=== PATIENT | female | born 1990 | race Caucasian/White ===

== ENCOUNTER 2017-11-11 18:23 | Emergency (ER) | payer BC ==
[2017-11-11] MEDS ORDERED: MORPHINE SULFATE 2 MG INJ IV ONE (19:07)
[2017-11-11] MEDS ORDERED: Zofran 4 MG/2 ML VIAL IV ONE (19:07)
--- NOTE | 2017-11-11 19:12 | ERPHSYRPT ---
- History of Present Illness Time Seen by Provider: 11/11/17 19:04 Historian: patient Exam Limitations: no limitations Physician History: 27 y/o female with history of gastritis, hiatal hernia and abdominal lipoma comes to the ER with complaints of left sided abdominal pain that started after moving a box at work. Pt describes the pain as sharp, constant, 6/10, worse with movement and not relieved by motrin. Pt also admits to nausea, but no vomiting, diarrhea, constipation, fever, chills, or urinary symptoms. Pt does admit to having mild abdominal pain from gastritis but says that this is different. Timing/Duration: today Activities at Onset: activity Quality: sharpness Abdominal Pain Onset Location: [facility] Pain Radiation: chest Severity of Pain-Max: moderate Severity of Pain-Current: moderate Modifying Factors: Improves With: nothing Associated Symptoms: nausea Previous symptoms: no prior history Allergies/Adverse Reactions: No Known Drug Allergies Allergy (Unverified 05/29/15 06:04) Home Medications: Citalopram Hydrobromide [Celexa] 20 mg PO DAILY 05/29/15 [History] Norgestimate-Ethinyl Estradiol [Iwb-Et-Zllajerg] 1 each PO DAILY 05/29/15 [ History] Omeprazole Magnesium [Prilosec Otc] 20 mg PO BID 05/29/15 [History] Buspirone HCl [Buspar] 1 tab PO BID 11/11/17 [History] Sucralfate 1 gm [Carafate 1 GM] 1 tab PO QID 11/11/17 [History] - Review of Systems Constitutional: No Fever, No Chills Eyes: No Symptoms Ears, Nose, & Throat: No Symptoms Respiratory: No Cough, No Dyspnea Cardiac: No Chest Pain, No Edema, No Syncope Abdominal/Gastrointestinal: Abdominal Pain, Nausea, No Vomiting, No Diarrhea Genitourinary Symptoms: No Dysuria Musculoskeletal: No Back Pain, No Neck Pain Skin: No Rash Neurological: No Dizziness, No Focal Weakness, No Sensory Changes Psychological: No Symptoms Endocrine: No Symptoms All Other Systems: Reviewed and Negative - Past Medical History Pertinent Past Medical History: Yes Neurological History: No Pertinent History ENT History: No Pertinent History Cardiac History: No Pertinent History Respiratory History: No Pertinent History Endocrine Medical History: No Pertinent History Musculoskeletal History: No Pertinent History GI Medical History: GERD History: No Pertinent History Psycho-Social History: Depression Female Reproductive Disorders: No Pertinent History - Past Surgical History Past Surgical History: Yes Neuro Surgical History: No Pertinent History Cardiac: No Pertinent History Respiratory: No Pertinent History Gastrointestinal: No Pertinent History Genitourinary: No Pertinent History Musculoskeletal: No Pertinent History Female Surgical History: No Pertinent History Other Surgical History: sinus surgery at age 7-"cleaned it out", abd lipoma removal, EGD - Social History Smoking Status: Never smoker Exposure to second hand smoke: No Drug Use: none - Nursing Vital Signs Nursing Vital Signs: Initial Vital Signs Temperature 97.6 F 11/11/17 19:11 Pulse Rate 90 11/11/17 19:11 Respiratory Rate 20 11/11/17 19:11 Blood Pressure 133/71 11/11/17 19:11 O2 Sat by Pulse Oximetry 99 11/11/17 19:11 Pain Scale Pain Intensity 3 - Physical Exam General Appearance: mild distress, alert Eye Exam: PERRL/EOMI, eyes nml inspection Ears, Nose, Throat Exam: normal ENT inspection, pharynx normal, moist mucous membranes Neck Exam: normal inspection, non-tender, supple, full range of motion Respiratory Exam: normal breath sounds, lungs clear, No respiratory distress Cardiovascular Exam: regular rate/rhythm, normal heart sounds Gastrointestinal/Abdomen Exam: soft, normal bowel sounds, tenderness, No distention, No mass, No guarding, No rebound Back Exam: normal inspection, normal range of motion, No CVA tenderness, No vertebral tenderness Extremity Exam: normal inspection, normal range of motion, pelvis stable Neurologic Exam: alert, oriented x 3, cooperative, normal mood/affect, nml cerebellar function, sensation nml, No motor deficits Skin Exam: normal color, warm, dry - Course Nursing assessment & vital signs reviewed: Yes Ordered Tests: Active Orders 24 hr Category Date Time Status IV Insertion STAT Care 11/11/17 19:07 Active NPO (ED) STAT Care 11/11/17 19:07 Active ABDOMEN AND PELVIS W CONTRAST [CT] Stat Exams 11/11/17 19:07 Taken AMYLASE Stat Lab 11/11/17 19:38 Completed CBC W DIFF Stat Lab 11/11/17 19:38 Completed CMP Stat Lab 11/11/17 19:38 Completed CULTURE,URINE Stat Lab 11/11/17 19:23 Received HCG QUALITATIVE,SERUM Stat Lab 11/11/17 19:38 Completed LIPASE Stat Lab 11/11/17 19:38 Completed Lactic Acid Stat Lab 11/11/17 20:35 Completed UA W/ MICROSCOPIC Stat Lab 11/11/17 19:23 Completed Medication Summary Discontinued Medications Generic Name Dose Route Start Last Admin Trade Name Freq PRN Reason Stop Dose Admin Ketorolac Tromethamine 30 mg 11/11/17 20:56 11/11/17 21:22 Toradol 30 Mg Injection IV 11/11/17 20:57 30 mg STAT ONE Administration Ketorolac Tromethamine Confirm 11/11/17 21:19 Toradol 30 Mg Injection Administered 11/11/17 21:20 Dose 30 mg .ROUTE .STK-MED ONE Morphine Sulfate 2 mg 11/11/17 19:07 11/11/17 19:37 Morphine Sulfate 2 Mg Inj IV 11/11/17 19:08 2 mg STAT ONE Administration Morphine Sulfate Confirm 11/11/17 19:26 Morphine Sulfate 2 Mg Inj Administered 11/11/17 19:27 Dose 2 mg .ROUTE .STK-MED ONE Ondansetron HCl 4 mg 11/11/17 19:07 11/11/17 19:37 Zofran 4 Mg/2 Ml Vial IV 11/11/17 19:08 4 mg STAT ONE Administration Ondansetron HCl Confirm 11/11/17 19:26 Zofran 4 Mg/2 Ml Vial Administered 11/11/17 19:27 Dose 4 mg .ROUTE .STK-MED ONE Lab/Rad Data: Laboratory Result Diagrams 11/11/17 19:38 11/11/17 19:38 Laboratory Results 11/11/17 11/11/17 11/11/17 Range/Units 20:35 19:38 19:38 WBC (4.0-10.5) K/mm3 RBC (4.1-5.4) M/mm3 Hgb (12.0-16.0) gm/dl Hct (35-47) % MCV (78-100) fl MCH (26-32) pg MCHC (32-36) g/dl RDW (11.5-14.0) % Plt Count (150-450) K/mm3 MPV (6-9.5) fl Gran % (36.0-66.0) % Lymphocytes % (24.0-44.0) % Monocytes % (0.0-12.0) % Eosinophils % (0.00-5.0) % Basophils % (0.0-0.4) % Basophils # (0-0.4) Sodium 143 (136-145) mEq/L Potassium 4.0 (3.5-5.1) mEq/L Chloride 107 (98-107) mEq/L Carbon Dioxide 23.3 (21-32) mEq/L Anion Gap 16.5 H (5-15) MEQ/L BUN 8 L (9-20) mg/dL Creatinine 0.69 (0.55-1.30) mg/dl Estimated GFR > 60 ML/MIN Glucose 87 (70-110) MG/DL Lactic Acid 1.2 (0.4-2.0) Calcium 8.7 (8.5-10.1) mg/dL Total Bilirubin 0.20 (0.2-1.0) mg/dL AST 14 L (15-37) U/L ALT 18 (12-78) U/L Alkaline Phosphatase 58 (46-116) U/L Serum Total Protein 7.5 (6.4-8.2) gm/dL Albumin 3.6 (3.4-5.0) g/dL Amylase 36 (25-115) U/L Lipase 106 (73-393) U/L Serum , Qual NEGATIVE (Negative) Ur Collection Type Urine Color (YELLOW) Urine Appearance (CLEAR) Urine pH (5-6) Ur Specific [place] (1.005-1.025) Urine Protein (Negative) Urine Ketones (NEGATIVE) Urine Blood (0-5) Jonathan/ul Urine Nitrite (NEGATIVE) Urine Bilirubin (NEGATIVE) Urine Urobilinogen (0-1) mg/dL Ur Leukocyte Esterase (NEGATIVE) Urine Microscopic RBC (0-2) /HPF Ur Epithelial Cells (FEW) /HPF Urine Bacteria (NEGATIVE) /HPF Urine Mucus (NEGATIVE) /HPF Urine Culture Reflexed (NO) Urine Glucose (NEGATIVE) mg/dL Specimen Received 11/11/17 11/11/17 Range/Units 19:38 19:23 WBC 12.1 H (4.0-10.5) K/mm3 RBC 3.93 L (4.1-5.4) M/mm3 Hgb 10.7 L (12.0-16.0) gm/dl Hct 33.1 L (35-47) % MCV 84.2 (78-100) fl MCH 27.2 (26-32) pg MCHC 32.3 (32-36) g/dl RDW 13.8 (11.5-14.0) % Plt Count 311 (150-450) K/mm3 MPV 10.5 H (6-9.5) fl Gran % 55.1 (36.0-66.0) % Lymphocytes % 32.4 (24.0-44.0) % Monocytes % 6.1 (0.0-12.0) % Eosinophils % 5.9 H (0.00-5.0) % Basophils % 0.5 (0.0-0.4) % Basophils # 0.06 (0-0.4) Sodium (136-145) mEq/L Potassium (3.5-5.1) mEq/L Chloride (98-107) mEq/L Carbon Dioxide (21-32) mEq/L Anion Gap (5-15) MEQ/L BUN (9-20) mg/dL Creatinine (0.55-1.30) mg/dl Estimated GFR ML/MIN Glucose (70-110) MG/DL Lactic Acid (0.4-2.0) Calcium (8.5-10.1) mg/dL Total Bilirubin (0.2-1.0) mg/dL AST (15-37) U/L ALT (12-78) U/L Alkaline Phosphatase (46-116) U/L Serum Total Protein (6.4-8.2) gm/dL Albumin (3.4-5.0) g/dL Amylase (25-115) U/L Lipase (73-393) U/L Serum , Qual (Negative) Ur Collection Type CCMS Urine Color YELLOW (YELLOW) Urine Appearance SLIGHTLY CLOUDY (CLEAR) Urine pH 5.0 (5-6) Ur Specific [place] 1.025 (1.005-1.025) Urine Protein TRACE (Negative) Urine Ketones SMALL (NEGATIVE) Urine Blood 50 (0-5) Jonathan/ul Urine Nitrite NEGATIVE (NEGATIVE) Urine Bilirubin NEGATIVE (NEGATIVE) Urine Urobilinogen NORMAL (0-1) mg/dL Ur Leukocyte Esterase NEGATIVE (NEGATIVE) Urine Microscopic RBC 2-5 (0-2) /HPF Ur Epithelial Cells MANY (FEW) /HPF Urine Bacteria RARE (NEGATIVE) /HPF Urine Mucus MANY (NEGATIVE) /HPF Urine Culture Reflexed YES (NO) Urine Glucose NEGATIVE (NEGATIVE) mg/dL Specimen Received T@1930 - Progress Progress: improved Progress Note: 11/11/17 21:[address] scan abd/pelvis does not any acute findings. The patient feels better after receiving morphine, toradol and zofran. The labs show a slightly elevated white count of 12,000 and the rest of the labs are unremarkable. Pt will be d/c home on toradol and zofran. - Departure Time of Disposition: 21:47 Departure Disposition: Home Clinical Impression: Abdominal wall strain Qualifiers: Encounter type: initial encounter Qualified Code(s): S39.011A - Strain of muscle, fascia and tendon of abdomen, initial encounter Condition: Stable Critical Care Time: No Referrals: CR KATE [Primary Care Provider] - Instructions: Acute Abdomen (Belly Pain), Adult (DC) Additional Instructions: Follow up with your primary care doctor in the next few days if you should continue to have abdominal pain. Forms: Work/School Release Form Prescriptions: Ketorolac Tromethamine [Toradol] 10 mg PO QID PRN #20 tablet PRN Reason: Pain Promethazine HCl 25 mg [Phenergan 25 mg] 25 mg PO QID PRN #10 tablet PRN Reason: Nausea/Vomiting
[2017-11-11] MEDS ORDERED: Zofran 4 MG/2 ML VIAL ONE (19:26)
[2017-11-11] MEDS ORDERED: MORPHINE SULFATE 2 MG INJ ONE (19:26)
[2017-11-11 19:42] LABS: BASOPHIL % 0.5 % (0.0-0.4); Basophil (Absolute #) 0.06 (0-0.4); Eosinophil % 5.9 % (0.00-5.0); Eosinophil (Absolute #) 0.71 (0-0.5); Granulocyte Absolute (ANC) 6.63 (1.4-6.9); Granulocytes % 55.1 % (36.0-66.0); Hematocrit 33.1 % (35-47); Hemoglobin 10.7 gm/dl (12.0-16.0); Lymphocyte (Absolute #) 3.91 (1.0-4.6); Lymphocytes % 32.4 % (24.0-44.0); Mean Cell Volume 84.2 fl (78-100); Mean Corpuscular Hemoglobin 27.2 pg (26-32); Mean Corpuscular Hgb Concent. 32.3 g/dl (32-36); Mean Platelet Volume 10.5 fl (6-9.5); Monocyte (Absolute #) 0.74 (0.0-1.3); Monocytes % 6.1 % (0.0-12.0); Platelet Count 311 K/mm3 (150-450); Red Blood Count 3.93 M/mm3 (4.1-5.4); Red Cell Distribution Width 13.8 % (11.5-14.0); White Blood Count 12.1 K/mm3 (4.0-10.5)
[2017-11-11 19:46] LABS: Appearance SLIGHTLY CLOUDY (CLEAR); Bilirubin NEGATIVE (NEGATIVE); Glucose NEGATIVE (NEGATIVE); Ketones SMALL (NEGATIVE); Leukocyte Esterase NEGATIVE (NEGATIVE); Nitrite NEGATIVE (NEGATIVE); Protein,Urine Dip TRACE (Negative); Specific Gravity 1.025 (1.005-1.025); Urobilinogen NORMAL mg/dL (0-1)
[2017-11-11 19:47] LABS: Blood 50 Ery/ul (0-5)
[2017-11-11 19:52] LABS: Bacteria RARE /HPF (NEGATIVE); Epithelial Cells MANY /HPF (FEW); Mucus MANY /HPF (NEGATIVE)
[2017-11-11 20:05] LABS: ALBUMIN 3.6 g/dL (3.4-5.0); ALKALINE PHOSPHATASE 58 U/L (46-116); AMYLASE 36 U/L (25-115); ANION GAP 16.5 MEQ/L (5-15); BLOOD UREA NITROGEN 8 mg/dL (9-20); CHLORIDE 107 mEq/L (98-107); Calcium 8.7 mg/dL (8.5-10.1); Carbon Dioxide 23.3 mEq/L (21-32); Creatinine 1 0.69 mg/dl (0.55-1.30); Glucose 87 MG/DL (70-110); LIPASE 106 U/L (73-393); SGOT/AST 14 U/L (15-37); SGPT/ALT 18 U/L (12-78); SODIUM 143 mEq/L (136-145); Total Protein 7.5 gm/dL (6.4-8.2)
[2017-11-11] MEDS ORDERED: TORAdol 30 mg Injection IV ONE (20:56)
[2017-11-11] MEDS ORDERED: TORAdol 30 mg Injection ONE (21:19)
[2017-11-11 21:27] VITALS: BP 136/81
[2017-11-11 21:54] VITALS: PULSE 82; O2SAT 97
--- NOTE | 2017-11-12 08:51 | XRAY ---
Indication: Left upper quadrant pain and vomiting. Multiple contiguous axial images obtained through the abdomen and pelvis using 80cc Isovue 370 contrast only as ordered. Comparison: March 04, 2017. Lung bases remaining clear. Heart is not enlarged. Stable small hiatal hernia. Noncontrasted stomach and bowel loops appear nonobstructed. Appendix not seen. No free fluid/air. Previous bilateral nephrocalcinosis obscured on this contrasted exam. Remaining liver, gallbladder, pancreas, spleen, adrenal glands, kidneys, ureters, bladder, uterus, ovaries, and aorta appear unremarkable. No pathologic retroperitoneal lymphadenopathy. Osseous structures intact. No ventral or inguinal hernias. Impression: 1. Stable small hiatal hernia. 2. No new or acute intra-abdominal/pelvic abnormalities. Comment: Preliminary interpretation was made by [facility]. No critical discrepancy. CT DI 28.13
== END 2017-11-11 22:06 | disposition home or self-care (01) ==
LOC: ED 18:23
DX: S39.011A Strain of muscle, fascia and tendon of abdomen, initial encounter (principal); X50.0XXA Overexertion from strenuous movement or load, initial encounter; Y93.89 Activity, other specified; Y92.218 Other school as the place of occurrence of the external cause; K21.9 Gastro-esophageal reflux disease without esophagitis
CPT/HCPCS: 36000; 36415; 74177; 80053; 81000; 82150; 83605; 83690; 84703; 85025; 87086; 96374; 96375; 99284; J1885; J2270; J2405

== ENCOUNTER 2018-03-12 19:57 | Emergency (ER) | payer BC ==
[2018-03-12 20:21] VITALS: BP 169/69; O2SAT 96
[2018-03-12] MEDS ORDERED: Xopenex 1.25 MG/0.5 ML UD NEBULE IH ONE ×2 (20:41→20:45)
[2018-03-12] MEDS ORDERED: Sodium Chloride 3 ML UD NEBULES IH ONE (20:45)
--- NOTE | 2018-03-12 20:49 | ERPHSYRPT ---
- History of Present Illness Time Seen by Provider: 03/12/18 20:10 Source: patient Patient Subjective Stated Complaint: pt is alert and oriented. pt is ambulatory with a steady gait. pt comes in today with c/o of being short of breath. she states that she has had "a hard time getting a full breath" rather than a "hard time catching her breath". pt lungs sound clear a-p bilat throughout. O2 sat at 96% on RA. no audible wheezes. pt states that she has be feeling lightheaded and dizzy all day but the SOB did not start until right before arrival. she states she was driving when her SOB started. Triage Nursing Assessment: see above Physician History: PATIENT WITH A HISTORY OF DEPRESSION COMPLAINS OF SHORTNESS OF BREATH WITH DIFFICULTY CATCHING HER BREATH. HAS ASSOCIATED CHEST TIGHTNESS, RIGHT SIDED CHEST PAIN UPON INSPIRATION. DENIES COUGH, FEVER, DIAPHORESIS OR PALPITATIONS. PATIENT ALSO COMPLAINS OF DIZZINESS WORSE UPON MOTION OF HER HEAD. Timing/Duration: today Activities at Onset: activity Severity of Dyspnea-Max: mild Severity of Dyspnea-Current: mild Possible Cause: no prior episodes Modifying Factors: Improves With: activity Associated Symptoms: dizziness International travel in last 2 weeks: No Allergies/Adverse Reactions: No Known Drug Allergies Allergy (Unverified 05/29/15 06:04) Home Medications: Norgestimate-Ethinyl Estradiol [Qtw-Qp-Mpbnfrwc] 1 each PO DAILY 05/29/15 [ History] Omeprazole Magnesium [Prilosec Otc] 20 mg PO BID 05/29/15 [History] Buspirone HCl [Buspar] 1 tab PO BID 11/11/17 [History] Sucralfate 1 gm [Carafate 1 GM] 1 tab PO QID 11/11/17 [History] Bupropion HCl [Bupropion HCl ER] 150 mg PO DAILY 03/12/18 [History] Hx Tetanus, Diphtheria Vaccination/Date Given: Yes Hx Influenza Vaccination/Date Given: No Hx Pneumococcal Vaccination/Date Given: No Immunizations Up to Date: Yes - Review of Systems Constitutional: No Fever, No Chills Eyes: No Symptoms Ears, Nose, & Throat: No Symptoms Respiratory: Dyspnea, Dyspnea on Exertion (ROMANO), No Cough Cardiac: No Symptoms, No Chest Pain, No Edema, No Syncope Abdominal/Gastrointestinal: No Symptoms, No Abdominal Pain, No Nausea, No Vomiting, No Diarrhea Genitourinary Symptoms: No Dysuria Musculoskeletal: No Symptoms, No Back Pain, No Neck Pain Skin: No Rash Neurological: No Dizziness, No Focal Weakness, No Sensory Changes Psychological: No Symptoms Endocrine: No Symptoms All Other Systems: Reviewed and Negative - Past Medical History Pertinent Past Medical History: Yes Neurological History: No Pertinent History ENT History: No Pertinent History Cardiac History: No Pertinent History Respiratory History: No Pertinent History Endocrine Medical History: No Pertinent History Musculoskeletal History: No Pertinent History GI Medical History: GERD History: No Pertinent History Psycho-Social History: Depression Female Reproductive Disorders: No Pertinent History Other Medical History: H. Pylori, and E. Coli - Past Surgical History Past Surgical History: Yes Neuro Surgical History: No Pertinent History Cardiac: No Pertinent History Respiratory: No Pertinent History Gastrointestinal: No Pertinent History Genitourinary: No Pertinent History Musculoskeletal: No Pertinent History Female Surgical History: No Pertinent History Other Surgical History: sinus surgery 2002-"cleaned it out", abd lipoma removal May 2017, EGD - Social History Smoking Status: Never smoker Exposure to second hand smoke: No Drug Use: none - Female History Hx Now: No (unknown) - Nursing Vital Signs Nursing Vital Signs: Initial Vital Signs Temperature 98.6 F 03/12/18 19:57 Pulse Rate 110 H 03/12/18 19:57 Respiratory Rate 16 03/12/18 19:57 Blood Pressure 169/69 03/12/18 19:57 O2 Sat by Pulse Oximetry 95 03/12/18 19:57 Pain Scale Pain Intensity 0 - Physical Exam General Appearance: no apparent distress, alert Eye Exam: PERRL/EOMI Neck Exam: normal inspection, supple Respiratory Exam: diminished breath sounds (SLIGHT AT BASES NO WHEEZES OR RHONCHI, TENDERNESS RIGHT LATERAL CHEST WALL) Cardiovascular/Chest Exam: normal heart sounds, regular rate/rhythm Abdominal/Gastrointestinal Exam: soft, No tenderness, No distention, No mass Extremity Exam: non-tender, normal range of motion, normal inspection, no calf tenderness, no pedal edema Peripheral Pulses Exam: carotid (R): 2+, carotid (L): 2+, femoral (R): 2+, femoral (L): 2+, dorsalis-pedis (R): 2+, dorsalis-pedis (L): 2+ Neurologic Exam: alert, oriented x 3, cooperative, foot roentgenologist II-XII nml as tested, sensation nml, No motor deficits Skin Exam: normal color, warm, No dry SpO2 Interpretation: normal SpO2: 96 Oxygen Delivery: Room Air - Course EKG Interpreted by Me: RATE, Sinus Rhythm, NORMAL AXIS - Radiology Exams Chest X-ray Interpretation: Interpreted by me, Negative, No Infiltrates Ordered Tests: Active Orders 24 hr Category Date Time Status EKG-ER Only STAT Care 03/12/18 20:41 Active CHEST 2 VIEWS (PA AND LAT) Stat Exams 03/12/18 20:45 Taken BMP Stat Lab 03/12/18 21:01 Completed CBC W DIFF Stat Lab 03/12/18 21:01 Completed D-DIMER QUANTITATION Stat Lab 03/12/18 21:01 Completed HCG,QUALITATIVE URINE Stat Lab 03/12/18 22:00 Completed MAGNESIUM Stat Lab 03/12/18 21:01 Completed TROPONIN Q3H Lab 03/12/18 21:01 Completed TROPONIN Q3H Lab 03/12/18 23:45 Ordered TROPONIN Q3H Lab 03/13/18 02:45 Ordered TROPONIN Q3H Lab 03/13/18 05:45 Ordered TROPONIN Q3H Lab 03/13/18 08:45 Ordered Peak Expiratory Flow Rate ONCE RT 03/12/18 20:44 Completed Respiratory Nebulizer STAT RT 03/12/18 20:52 Completed Medication Summary Discontinued Medications Generic Name Dose Route Start Last Admin Trade Name Freq PRN Reason Stop Dose Admin Ketorolac Tromethamine 10 mg 03/12/18 23:23 Toradol 10 Mg Tablet PO 03/12/18 23:24 STAT ONE Levalbuterol HCl 1.25 mg 03/12/18 20:41 03/12/18 20:51 Xopenex 1.25 Mg/0.5 Ml Ud Nebule IH 03/12/18 20:42 1.25 mg STAT ONE Administration Levalbuterol HCl Confirm 03/12/18 20:45 Xopenex 1.25 Mg/0.5 Ml Ud Nebule Administered 03/12/18 20:46 Dose 1.25 mg IH .STK-MED ONE Meclizine HCl 25 mg 03/12/18 22:43 03/12/18 22:48 Antivert 25 Mg PO 03/12/18 22:44 25 mg STAT ONE Administration Meclizine HCl Confirm 03/12/18 22:47 Antivert 25 Mg Administered 03/12/18 22:48 Dose 25 mg .ROUTE .STK-MED ONE Sodium Chloride Confirm 03/12/18 20:45 Sodium Chloride 3 Ml Ud Nebules Administered 03/12/18 20:46 Dose 3 ml IH .STK-MED ONE Lab/Rad Data: Laboratory Result Diagrams 03/12/18 21:01 03/12/18 21:01 Laboratory Results 03/12/18 03/12/18 03/12/18 Range/Units 22:00 21:01 21:01 WBC (4.0-10.5) K/mm3 RBC (4.1-5.4) M/mm3 Hgb (12.0-16.0) gm/dl Hct (35-47) % MCV (78-100) fl MCH (26-32) pg MCHC (32-36) g/dl RDW (11.5-14.0) % Plt Count (150-450) K/mm3 MPV (6-9.5) fl Gran % (36.0-66.0) % Eos # (Auto) (0-0.5) Absolute Lymphs (auto) (1.0-4.6) Absolute Monos (auto) (0.0-1.3) Lymphocytes % (24.0-44.0) % Monocytes % (0.0-12.0) % Eosinophils % (0.00-5.0) % Basophils % (0.0-0.4) % Absolute Granulocytes (1.4-6.9) Basophils # (0-0.4) D-Dimer < 215 L (215-500) ng/mL Sodium (137-145) mmol/L Potassium (3.5-5.1) mmol/L Chloride (98-107) mmol/L Carbon Dioxide (22-30) mmol/L Anion Gap (5-15) MEQ/L BUN (7-17) mg/dL Creatinine (0.52-1.04) mg/dL Estimated GFR ML/MIN Glucose (74-106) mg/dL Calcium (8.4-10.2) mg/dL Magnesium (1.6-2.3) mg/dL Troponin I < 0.012 (0.000-0.034) ng/mL Urine HCG, Qual NEGATIVE (Negative) 03/12/18 03/12/18 Range/Units 21:01 21:01 WBC 9.7 (4.0-10.5) K/mm3 RBC 4.26 (4.1-5.4) M/mm3 Hgb 11.5 L (12.0-16.0) gm/dl Hct 35.4 (35-47) % MCV 83.1 (78-100) fl MCH 26.9 (26-32) pg MCHC 32.5 (32-36) g/dl RDW 14.5 H (11.5-14.0) % Plt Count 367 (150-450) K/mm3 MPV 9.7 H (6-9.5) fl Gran % 56.6 (36.0-66.0) % Eos # (Auto) 0.44 (0-0.5) Absolute Lymphs (auto) 3.04 (1.0-4.6) Absolute Monos (auto) 0.63 (0.0-1.3) Lymphocytes % 31.5 (24.0-44.0) % Monocytes % 6.5 (0.0-12.0) % Eosinophils % 4.6 (0.00-5.0) % Basophils % 0.8 (0.0-0.4) % Absolute Granulocytes 5.46 (1.4-6.9) Basophils # 0.08 (0-0.4) D-Dimer (215-500) ng/mL Sodium 144 (137-145) mmol/L Potassium 4.2 (3.5-5.1) mmol/L Chloride 106 (98-107) mmol/L Carbon Dioxide 27 (22-30) mmol/L Anion Gap 15.1 H (5-15) MEQ/L BUN 11 (7-17) mg/dL Creatinine 0.65 (0.52-1.04) mg/dL Estimated GFR > 60.0 ML/MIN Glucose 110 H (74-106) mg/dL Calcium 9.8 (8.4-10.2) mg/dL Magnesium 2.0 (1.6-2.3) mg/dL Troponin I (0.000-0.034) ng/mL Urine HCG, Qual (Negative) - Progress Progress: improved Progress Note: 03/12/18 21:22 PEAK FLOW 302, FOLLOWED BY XOPENEX 1.25MG AEROSOL TX, ADMINISTERED ANTIVERT 25MG AND TORADOL 10MG ORALLY 03/12/18 23:20 Counseled pt/family regarding: lab results, diagnosis, need for follow-up, rad results - Departure Time of Disposition: 23:31 Departure Disposition: Home Clinical Impression: ACUTE CHEST WALL PAIN, ACUTE LABYRINTHITIS Condition: Stable Critical Care Time: No Referrals: CR KATE [Primary Care Provider] - Additional Instructions: BEGIN TORADOL 10 MG EVERY 6 HOURS NEEDED FOR PAIN. ANTIVERT 25MG EVERY 8 HOURS FOR DIZZINESS NEEDED. CONSULT YOUR PRIMARY CARE PROVIDER FOR FOLLOW Prescriptions: Ketorolac Tromethamine [Toradol] 10 mg PO Q6HPRN PRN #20 tablet PRN Reason: Pain Meclizine HCl 25 mg [Antivert 25 mg] 25 mg PO Q8HPRN PRN #20 tablet PRN Reason: Dizziness
[2018-03-12 20:57] VITALS: PULSE 97
[2018-03-12 21:04] LABS: BASOPHIL % 0.8 % (0.0-0.4); Basophil (Absolute #) 0.08 (0-0.4); Eosinophil % 4.6 % (0.00-5.0); Eosinophil (Absolute #) 0.44 (0-0.5); Granulocyte Absolute (ANC) 5.46 (1.4-6.9); Granulocytes % 56.6 % (36.0-66.0); Hematocrit 35.4 % (35-47); Hemoglobin 11.5 gm/dl (12.0-16.0); Lymphocyte (Absolute #) 3.04 (1.0-4.6); Lymphocytes % 31.5 % (24.0-44.0); Mean Cell Volume 83.1 fl (78-100); Mean Corpuscular Hgb Concent. 32.5 g/dl (32-36); Mean Platelet Volume 9.7 fl (6-9.5); Monocyte (Absolute #) 0.63 (0.0-1.3); Monocytes % 6.5 % (0.0-12.0); Platelet Count 367 K/mm3 (150-450); Red Blood Count 4.26 M/mm3 (4.1-5.4); Red Cell Distribution Width 14.5 % (11.5-14.0); White Blood Count 9.7 K/mm3 (4.0-10.5)
[2018-03-12 21:26] LABS: Mean Corpuscular Hemoglobin 26.9 pg (26-32)
[2018-03-12 21:45] LABS: ANION GAP 15.1 MEQ/L (5-15); BLOOD UREA NITROGEN 11 mg/dL (7-17); CHLORIDE 106 mmol/L (98-107); Calcium 9.8 mg/dL (8.4-10.2); Carbon Dioxide 27 mmol/L (22-30); Creatinine 1 0.65 mg/dL (0.52-1.04); Glucose 110 mg/dL (74-106); Potassium 4.2 mmol/L (3.5-5.1); SODIUM 144 mmol/L (137-145)
[2018-03-12] MEDS ORDERED: ANTIVERT 25 MG PO ONE (22:43)
[2018-03-12] MEDS ORDERED: ANTIVERT 25 MG ONE (22:47)
[2018-03-12] MEDS ORDERED: TORAdol 10 MG TABLET PO ONE (23:23)
--- NOTE | 2018-03-13 09:20 | XRAY ---
Indication: Dyspnea. Comparison: None PA/lateral chest demonstrates normal heart, lungs, and bony thorax.
== END 2018-03-12 23:48 | disposition home or self-care (01) ==
LOC: ED 19:57
DX: R07.89 Other chest pain (principal); H83.09 Labyrinthitis, unspecified ear; R06.02 Shortness of breath; Z79.899 Other long term (current) drug therapy
CPT/HCPCS: 36415; 71046; 80048; 83735; 84484; 84703; 85025; 85379; 93005; 94150; 94640; 99284; A9270-GY

== ENCOUNTER 2024-04-01 16:01 | Emergency (ER) | payer BC ==
[2024-04-01 17:13] VITALS: TEMP 97.7
[2024-04-01] MEDS ORDERED: TORAdol 30 mg Injection ONE (18:03)
[2024-04-01] MEDS: TORAdol 30 mg Injection IM ONE (18:06)
[2024-04-01 18:07] VITALS: BP 92/74; PULSE 93; RESP 18; O2SAT 96
--- NOTE | 2024-04-01 18:14 | ERPHSYRPT ---
- History of Present Illness Time Seen by Provider: 04/01/24 16:57 Source: patient Exam Limitations: no limitations Patient Subjective Stated Complaint: Patient fell at a gas station over a gas pump and injured her left foot. Incident occurred around 1300 today. Denies any other injuries. Triage Nursing Assessment: Patient is alert and oriented. Tenderness and swelling noted to top of left foot. Small abrasion noted on top of 2nd and 3rd toes; no active bleeding. Some bruising present to great toe. Physician History: 33 years old female presented in the ER with complaint of left midfoot pain after she fell over a gas pump around 1 PM. Patient reports moderate intensity sharp pain with ambulation and better with resting. No numbness or tingling in the toes. No ankle pain. No obvious swelling. No injury anywhere else. Patient has tenderness midfoot with no crepitus. Distal neurovascular intact. Bimalleolar negative tenderness. X-rays foot are negative for acute fracture dislocation. Reviewed by me, official report is pending. I believe patient has sprain, placed in Tyler wrap, flat postop shoe, NSAIDs Toradol here and to go home. Recommended ice, avoiding exertional activity and outpatient follow-up with primary care/podiatry. Allergies/Adverse Reactions: No Known Drug Allergies Allergy (Verified 04/01/24 16:59) Home Medications: Omeprazole Magnesium [Prilosec Otc] 20 mg PO BID 05/29/15 [History] Aripiprazole [Abilify] 2 mg PO DAILY 02/05/24 [History] Cholecalciferol (Vitd3)/Vit K2 [D3 + K2 Dots 1,000 Units Tab] 1 each PO DAILY 02/05/24 [History] Desvenlafaxine [Desvenlafaxine ER] 100 mg PO DAILY 02/05/24 [History] Mecobalamin [B12 Active] 1,000 mcg PO DAILY 02/05/24 [History] Non-Formulary Drug [Non-Formulary Item] 65 mg PO DAILY 02/05/24 [History] acetaZOLAMIDE [Acetazolamide 250 mg Tablet] 250 mg PO DAILY 02/05/24 [History] diphenhydrAMINE HCL [Benadryl] 25 mg PO BID PRN 02/05/24 [History] Hx Tetanus, Diphtheria Vaccination/Date Given: Yes Hx Influenza Vaccination/Date Given: Yes Hx Pneumococcal Vaccination/Date Given: No Immunizations Up to Date: Yes Travel Risk - International Travel Have you traveled outside of the country in past 3 weeks: No - Emerging Infectious Disease Are you exhibiting symptoms associated with any current EIDs: No Symptoms: Shortness of Breath - Review of Systems Constitutional: No Symptoms Ears, Nose, & Throat: No Symptoms Respiratory: No Symptoms Cardiac: No Symptoms Abdominal/Gastrointestinal: No Symptoms Genitourinary Symptoms: No Symptoms Musculoskeletal: Injury Skin: No Symptoms Neurological: No Symptoms Endocrine: No Symptoms Hematologic/Lymphatic: No Symptoms - Past Medical History Pertinent Past Medical History: Yes Neurological History: No Pertinent History ENT History: No Pertinent History Cardiac History: No Pertinent History Respiratory History: No Pertinent History Endocrine Medical History: No Pertinent History Musculoskeletal History: No Pertinent History GI Medical History: GERD History: No Pertinent History Psycho-Social History: Anxiety, Depression Female Reproductive Disorders: No Pertinent History Other Medical History: H. Pylori, and E. Coli - Past Surgical History Past Surgical History: Yes Neuro Surgical History: No Pertinent History Cardiac: No Pertinent History Respiratory: No Pertinent History Gastrointestinal: No Pertinent History Genitourinary: No Pertinent History Musculoskeletal: No Pertinent History Female Surgical History: No Pertinent History Other Surgical History: sinus surgery 2002-"cleaned it out", abd lipoma removal May 2017, EGD - Female History Hx Last Menstrual Period: NOW Hx Now: No - Social History Smoking Status: Never smoker Exposure to second hand smoke: No Drug Use: none - Social Determinants of Health Will the patient participate in the screening: Yes Do you worry about a steady place to live?: No Do you have any problems with any of the following?: No known problems In the past 12 months,have you had to go without utilities?: No Transportation Issues: No Has anyone in your support network made you feel unsafe?: No Have you or anyone in your house had to go without enough: No - Nursing Vital Signs Nursing Vital Signs: Initial Vital Signs Temperature 97.7 F 04/01/24 16:50 Pulse Rate 81 04/01/24 16:50 Respiratory Rate 18 04/01/24 16:50 Blood Pressure 136/100 04/01/24 16:50 O2 Sat by Pulse Oximetry 97 04/01/24 16:50 Pain Scale Pain Intensity 8 - Physical Exam General Appearance: no apparent distress, alert Neck Exam: normal inspection, full range of motion Cardiovascular/Respiratory Exam: normal breath sounds, regular rate/rhythm Ankle Exam: bilateral ankle: non-tender, normal inspection, normal range of motion Foot Exam: right foot: non-tender, normal inspection, normal range of motion, no evidence of injury, left foot: bone tenderness (Midfoot), pain, soft tissue tenderness Neuro/Tendon Exam: normal sensation, normal motor functions, normal tendon functions Mental Status Exam: alert, oriented x 3, cooperative Skin Exam: normal color SpO2 Interpretation: normal SpO2: 96 O2 Delivery: Room Air Ordered Tests: Active Orders 24 hr Category Date Time Status FOOT (MINIMUM 3 VIEWS) Stat Exams 04/01/24 16:58 Ordered Medication Summary Discontinued Medications Generic Name Dose Route Start Last Admin Trade Name Jovan PRN Reason Stop Dose Admin Ketorolac Tromethamine 30 mg 04/01/24 18:01 04/01/24 18:06 Ketorolac Tromethamine 30 Mg/Ml Inj IM 04/01/24 18:02 30 mg STAT ONE Administration Ketorolac Tromethamine Confirm 04/01/24 18:03 Ketorolac Tromethamine 30 Mg/Ml Inj Administered 04/01/24 18:04 Dose 30 mg .ROUTE .STK-MED ONE - Progress Progress: improved, pain not gone completely Progress Note: 04/01/24 18:12 33 years old female presented in the ER with complaint of left midfoot pain after she fell over a gas pump around 1 PM. Patient reports moderate intensity sharp pain with ambulation and better with resting. No numbness or tingling in the toes. No ankle pain. No obvious swelling. No injury anywhere else. Patient has tenderness midfoot with no crepitus. Distal neurovascular intact. Bimalleolar negative tenderness. X-rays foot are negative for acute fracture dislocation. Reviewed by me, official report is pending. I believe patient has sprain, placed in Tyler wrap, flat postop shoe, NSAIDs Toradol here and to go home. Recommended ice, avoiding exertional activity and outpatient follow-up with primary care/podiatry. Counseled pt/family regarding: diagnosis, need for follow-up, rad results Medical Desision Making - Diagnostic Testing Diagnostic test were ordered, analyzed, and reviewed by me: Yes Radiological Interpretation: Interpreted by me, Reviewed by me - Risk of complications The pt has a mod risk of morbidity or mortality based on: Need for prescription drug management - Departure Departure Disposition: Home Clinical Impression: Foot sprain Condition: Stable Critical Care Time: No Referrals: GABRIELLE LOVE NP [Primary Care Provider] - Follow up with PCP 1 day EDDIE WINTERS DPM [ACTIVE STAFF] - Follow up/PCP as directed (Call for appointment for reevaluation) Instructions: Foot Sprain (DC), Foot Fracture (DC) Additional Instructions: Weightbearing as tolerated. Tylenol/ibuprofen as needed for pain. Intermittent ice application. Keep it elevated. Avoid exertional activities. Follow-up with primary care/podiatry for reevaluation. Return to ER for any worsening. Prescriptions: Ibuprofen 600 mg PO Q6HPRN PRN 10 Days #20 tablet PRN Reason: Pain
--- NOTE | 2024-04-02 08:01 | XRAY ---
Indication: Pain following fall. Comparison: None 3 nonweightbearing views left foot demonstrates tiny heel spurs. No other bony, articular, or soft tissue abnormalities.
== END 2024-04-01 18:29 | disposition home or self-care (01) ==
LOC: ED 16:01
DX: S93.602A Unspecified sprain of left foot, initial encounter (principal); W01.0XXA Fall on same level from slipping, tripping and stumbling without subsequent striking against object, initial encounter; Y92.524 Gas station as the place of occurrence of the external cause; Z79.899 Other long term (current) drug therapy
CPT/HCPCS: 73630; 96372; 99283; J1885

== ENCOUNTER 2024-07-22 20:26 | Emergency (ER) | payer BC ==
[2024-07-22 20:49] VITALS: TEMP 97.6
[2024-07-22] MEDS ORDERED: Sodium Chloride 0.9% 1000 ML 1,000 ML ONE (21:13)
[2024-07-22] MEDS ORDERED: Zofran 4 MG/2 ML VIAL ONE (21:13)
[2024-07-22] MEDS ORDERED: TORAdol 30 mg Injection ONE (21:13)
[2024-07-22] MEDS: Sodium Chloride 0.9% 1000 ML 1,000 ML IV SCH (21:17)
[2024-07-22] MEDS: Zofran 4 MG/2 ML VIAL IV ONE (21:17)
[2024-07-22] MEDS: TORAdol 30 mg Injection IV ONE (21:17)
[2024-07-22 21:24] LABS: Absolute Neutrophil Ct (ANC) 9.11 x10^3/uL (1.56-6.13); BASOPHIL % 0.7 % (0.1-1.2); Eosinophil % 1.3 % (0.7-5.8); Eosinophil (Absolute #) 0.18 x10^3/uL (0.04-0.36); Hematocrit 36.5 % (34.1-44.9); Hemoglobin 12.2 g/dL (11.2-15.7); IMMATURE GRAN # 0.04 x10^3u/L (0.001-0.031); IMMATURE GRAN % 0.3 % (0.001-0.429); Lymphocyte (Absolute #) 3.37 x10^3/uL (1.18-3.74); Lymphocytes % 24.2 % (19.3-51.7); Mean Cell Volume 85.5 fL (79.4-94.8); Mean Corpuscular Hemoglobin 28.6 pg (25.6-32.2); Mean Corpuscular Hgb Concent. 33.4 g/dL (32.2-35.5); Mean Platelet Volume 9.8 fL (9.4-12.3); Monocyte (Absolute #) 1.14 x10^3/uL (0.24-0.86); Monocytes % 8.2 % (4.7-12.5); Neutrophil % 65.3 % (34.0-71.1); Platelet Count 340 x10^3/uL (182-369); Red Blood Count 4.27 x10^6/uL (3.93-5.22); Red Cell Distribution Width 12.7 % (11.7-14.4); White Blood Count 13.9 x10^3/uL (3.98-10.04)
[2024-07-22 21:38] LABS: ALBUMIN 3.7 g/dL (3.5-5.0); ANION GAP 14.1 MEQ/L (5-15); BILIRUBIN,TOTAL 0.7 mg/dL (0.2-1.3); Calcium 9.4 mg/dL (8.4-10.2); Creatinine 1 0.76 mg/dL (0.52-1.04); Potassium 3.8 mmol/L (3.5-5.1); Total Protein 6.7 g/dL (6.3-8.2)
--- NOTE | 2024-07-22 21:44 | ERPHSYRPT ---
- History of Present Illness Time Seen by Provider: 07/22/24 21:00 Historian: patient Exam Limitations: no limitations Patient Subjective Stated Complaint: epigastric pain that radiates to inbetween shoulder blades, pain started 2 hrs prior to arrival, pt ate a hotdog around around 1700 and pain started an hr after that, nausea Triage Nursing Assessment: pt ambulatory to bed by self, pt alert and oriented x3, skin pwd, pt c/o epigastric pain that radiates to in between shoulder blades, intermittent pain, nausea, afebrile, last BM was today with no abnormalities per patient, bowel sounds active in all quadrants Physician History: 33-year-old female BMI of 48.7 presents to our ED for evaluation of postprandial epigastric pain radiating to her back that started approximately 2 hours prior to arrival. Patient concerned for cholecystitis. Pain described as an ache that radiates from the epigastrium to the area between her shoulder blades. No trauma no fever mild nausea no vomiting. Symptoms are constant. Symptoms are moderate in intensity. It appears the symptomology is reproduced postprandially. Patient otherwise feels well. She voices no other complaints or concerns at this time. Portions of this note were created with voice recognition technology. There may be grammatical, spelling, punctuation or sound alike errors Timing/Duration: today Activities at Onset: none Quality: aching Abdominal Pain Onset Location: epigastric Pain Radiation: back (Back between shoulder blades) Severity of Pain-Max: moderate Severity of Pain-Current: mild Modifying Factors: Improves With: palpation Associated Symptoms: nausea Previous symptoms: no prior history Allergies/Adverse Reactions: morphine Adverse Reaction (Intermediate, Verified 07/22/24 20:41) Home Medications: Omeprazole Magnesium [Prilosec Otc] 20 mg PO BID 05/29/15 [History] Aripiprazole [Abilify] 2 mg PO DAILY 02/05/24 [History] Cholecalciferol (Vitd3)/Vit K2 [D3 + K2 Dots 1,000 Units Tab] 1 each PO DAILY 02/05/24 [History] Desvenlafaxine [Desvenlafaxine ER] 100 mg PO DAILY 02/05/24 [History] Mecobalamin [B12 Active] 1,000 mcg PO DAILY 02/05/24 [History] Non-Formulary Drug [Non-Formulary Item] 65 mg PO DAILY 02/05/24 [History] acetaZOLAMIDE [Acetazolamide 250 mg Tablet] 250 mg PO DAILY 02/05/24 [History] diphenhydrAMINE HCL [Benadryl] 25 mg PO BID PRN 02/05/24 [History] Hx Tetanus, Diphtheria Vaccination/Date Given: Yes Hx Influenza Vaccination/Date Given: Yes Hx Pneumococcal Vaccination/Date Given: No Immunizations Up to Date: Yes Travel Risk - International Travel Have you traveled outside of the country in past 3 weeks: No - Emerging Infectious Disease Are you exhibiting symptoms associated with any current EIDs: Yes Symptoms: Abdominal Pain - Review of Systems Constitutional: No Symptoms, No Fever, No Chills Eyes: No Symptoms Ears, Nose, & Throat: No Symptoms Respiratory: No Symptoms, No Cough, No Dyspnea Cardiac: No Symptoms, No Chest Pain, No Edema, No Syncope Abdominal/Gastrointestinal: No Symptoms, No Abdominal Pain, No Nausea, No Vomiting, No Diarrhea Genitourinary Symptoms: No Symptoms, Other, No Dysuria Musculoskeletal: No Symptoms, No Back Pain, No Neck Pain Skin: No Symptoms, No Rash Neurological: No Symptoms, No Dizziness, No Focal Weakness, No Sensory Changes Psychological: No Symptoms Endocrine: No Symptoms Hematologic/Lymphatic: No Symptoms All Other Systems: Reviewed and Negative - Past Medical History Pertinent Past Medical History: Yes Neurological History: No Pertinent History ENT History: No Pertinent History Cardiac History: No Pertinent History Respiratory History: No Pertinent History Endocrine Medical History: No Pertinent History Musculoskeletal History: No Pertinent History GI Medical History: GERD History: No Pertinent History Psycho-Social History: Anxiety, Depression Female Reproductive Disorders: No Pertinent History Other Medical History: H. Pylori, and E. Coli - Past Surgical History Past Surgical History: Yes Neuro Surgical History: No Pertinent History Cardiac: No Pertinent History Respiratory: No Pertinent History Gastrointestinal: No Pertinent History Genitourinary: No Pertinent History Musculoskeletal: No Pertinent History Female Surgical History: No Pertinent History Other Surgical History: sinus surgery 2002-"cleaned it out", abd lipoma removal May 2017, EGD - Female History Hx Last Menstrual Period: 07/22/24 Hx Now: No - Social History Smoking Status: Never smoker Exposure to second hand smoke: No Drug Use: none - Social Determinants of Health Will the patient participate in the screening: Yes Do you worry about a steady place to live?: No Do you have any problems with any of the following?: No known problems In the past 12 months,have you had to go without utilities?: No Transportation Issues: No Has anyone in your support network made you feel unsafe?: No Have you or anyone in your house had to go without enough: No - Nursing Vital Signs Nursing Vital Signs: Initial Vital Signs Temperature 97.6 F 07/22/24 20:43 Pulse Rate 84 07/22/24 20:43 Respiratory Rate 20 07/22/24 20:43 Blood Pressure 139/105 07/22/24 20:43 O2 Sat by Pulse Oximetry 98 07/22/24 20:43 Pain Scale Pain Intensity 0 - Physical Exam General Appearance: no apparent distress, alert Eye Exam: PERRL/EOMI, eyes nml inspection Ears, Nose, Throat Exam: normal ENT inspection, pharynx normal, moist mucous membranes Neck Exam: normal inspection, non-tender, supple, full range of motion Respiratory Exam: normal breath sounds, lungs clear, airway intact, No respiratory distress Cardiovascular Exam: regular rate/rhythm, normal heart sounds Gastrointestinal/Abdomen Exam: soft, tenderness, other (Epigastric tenderness. Some tenderness to the right upper quadrant), No mass Back Exam: normal inspection, normal range of motion, No CVA tenderness, No vertebral tenderness Extremity Exam: normal inspection, normal range of motion, pelvis stable Neurologic Exam: alert, oriented x 3, cooperative, normal mood/affect, sensation nml, No motor deficits Skin Exam: normal color, warm, dry Lymphatic Exam: No adenopathy SpO2 Interpretation: normal SpO2: 97 O2 Delivery: Room Air - Course Nursing assessment & vital signs reviewed: Yes Ordered Tests: Active Orders 24 hr Category Date Time Status IV Insertion STAT Care 07/22/24 21:09 Active ABDOMEN AND PELVIS W CONTRAST [CT] Stat Exams 07/22/24 21:41 Taken CBC W DIFF Stat Lab 07/22/24 21:00 Completed CMP Stat Lab 07/22/24 21:00 Completed LIPASE Stat Lab 07/22/24 21:00 Completed TROPONIN Q4H Lab 07/22/24 21:00 Completed TROPONIN Q4H Lab 07/23/24 01:15 Ordered TROPONIN Q4H Lab 07/23/24 05:15 Ordered Medication Summary Generic Name Dose Route Start Last Admin Trade Name Freq PRN Reason Stop Dose Admin Sodium Chloride 1,000 mls @ 100 mls/hr 07/22/24 21:15 07/22/24 21:17 Sodium Chloride 0.9% 1000 Ml IV 08/21/24 21:14 100 mls/hr .Q10H URIAH Administration Discontinued Medications Generic Name Dose Route Start Last Admin Trade Name Jovan PRN Reason Stop Dose Admin Ketorolac Tromethamine 30 mg 07/22/24 21:09 07/22/24 21:17 Ketorolac Tromethamine 30 Mg/Ml Inj IV 07/22/24 21:10 30 mg STAT ONE Administration Ketorolac Tromethamine Confirm 07/22/24 21:13 Ketorolac Tromethamine 30 Mg/Ml Inj Administered 07/22/24 21:14 Dose 30 mg .ROUTE .STK-MED ONE Ondansetron HCl 4 mg 07/22/24 21:13 07/22/24 21:17 Ondansetron Hcl 4 Mg/2 Ml Vial IV 07/22/24 21:14 4 mg STAT ONE Administration Ondansetron HCl Confirm 07/22/24 21:13 Ondansetron Hcl 4 Mg/2 Ml Vial Administered 07/22/24 21:14 Dose 4 mg .ROUTE .STK-MED ONE Lab/Rad Data: Laboratory Result Diagrams 07/22/24 21:00 07/22/24 21:00 Laboratory Results 07/22/24 07/22/24 07/22/24 Range/Units 21:00 21:00 21:00 WBC 13.9 H (3.98-10.04) x10^3/uL RBC 4.27 (3.93-5.22) x10^6/uL Hgb 12.2 (11.2-15.7) g/dL Hct 36.5 (34.1-44.9) % MCV 85.5 (79.4-94.8) fL MCH 28.6 (25.6-32.2) pg MCHC 33.4 (32.2-35.5) g/dL RDW 12.7 (11.7-14.4) % Plt Count 340 (182-369) x10^3/uL MPV 9.8 (9.4-12.3) fL Gran % 65.3 (34.0-71.1) % Immature Gran % (Auto) 0.3 (0.001-0.429) % Nucleat RBC Rel Count 0.0 (0.00-0.2) % Eos # (Auto) 0.18 (0.04-0.36) x10^3/uL Immature Gran # (Auto) 0.04 H (0.001-0.031) x10^3u/L Absolute Lymphs (auto) 3.37 (1.18-3.74) x10^3/uL Absolute Monos (auto) 1.14 H (0.24-0.86) x10^3/uL Absolute Nucleated RBC 0.00 (0.00-0.012) x10^3u/L Lymphocytes % 24.2 (19.3-51.7) % Monocytes % 8.2 (4.7-12.5) % Eosinophils % 1.3 (0.7-5.8) % Basophils % 0.7 (0.1-1.2) % Absolute Granulocytes 9.11 H (1.56-6.13) x10^3/uL Basophils # 0.10 H (0.01-0.08) x10^3/uL Sodium 138 (135-145) mmol/L Potassium 3.8 (3.5-5.1) mmol/L Chloride 111 H (98-107) mmol/L Carbon Dioxide 17 L (22-30) mmol/L Anion Gap 14.1 (5-15) MEQ/L BUN 7 (7-17) mg/dL Creatinine 0.76 (0.52-1.04) mg/dL Estimated GFR 106.0 ML/MIN Glucose 125 H (74-106) mg/dL Calcium 9.4 (8.4-10.2) mg/dL Total Bilirubin 0.70 (0.2-1.3) mg/dL AST 83 H (14-36) U/L ALT 32 (0-35) U/L Alkaline Phosphatase 75 (38-126) U/L Troponin I < 0.012 (0.000-0.033) ng/mL Serum Total Protein 6.7 (6.3-8.2) g/dL Albumin 3.7 (3.5-5.0) g/dL Lipase 74 (23-300) U/L - Progress Progress: improved Progress Note: 33-year-old female presents to our ED for evaluation of right upper quadrant tenderness epigastric pain. Physical exam reveals positive Bergman sign. Leukocytosis of 13.9 observed on CBC. Remaining labs otherwise essentially nonremarkable for acute pathology. CT abdomen pelvis shows small hiatal hernia with GERD changes otherwise negative. Patient scheduled for outpatient right upper quadrant ultrasound to be performed to morning at 10:30 AM. Results to be forwarded to patient's primary care doctor. Patient reassessed. No active pain at this time. Pain worse after eating. Plan of care discussed with rama diaz. She will follow-up in outpatient radiology for the ultrasound as planned. She voices no other complaints or concerns at this time. Portions of this note were created with voice recognition technology. There may be grammatical, spelling, punctuation or sound alike errors Complexity of problem addressed is moderate acute complicated no critical care time. Complexity data reviewed and analyzed is moderate. Test ordered chest reviewed results analyzed and correlated clinically with history and physical exam. Risk of complication and or risk of morbidity/mortality of patient man agement is low. Vital stable. Time spent to discharge patient approximately 20 minutes. Plan of care established for shared decision making. No social determinants felt present to impede follow-up. Portions of this note were created with voice recognition technology. There may be grammatical, spelling, punctuation or sound alike errors 07/22/24 23:23 07/22/24 23:23 Counseled pt/family regarding: lab results, diagnosis, need for follow-up, rad results - Departure Departure Disposition: Home Clinical Impression: Epigastric pain, Leukocytosis Condition: Stable Critical Care Time: No Referrals: GABRIELLE LOVE, [facility]FFER [Primary Care Provider] - Follow up/PCP as directed Additional Instructions: Discharge/Care Plan MICKEY GARIBAY was seen on 07/22/24 in the Emergency Room. The patient was counseled regarding Diagnosis,Lab results, Imaging studies, need for follow up and when to return to the Emergency Room. Prescriptions given: Discharge Note I have spoken with the patient and/or caregivers. I have explained the patient's condition, diagnosis and treatment plan based on the information available to me at this time. I have answered the patient's and/or caregiver's questions and addressed any concerns. The patient and/or caregivers have as good understanding of the patient's diagnosis, condition and treatment plan as can be expected at this point. The vital signs have been stable. The patient's condition is stable and appropriate for discharge from the emergency department. The patient will pursue further outpatient evaluation with the primary care physician or other designated or consulting physician as outlined in the discharge instructions. The patient and/or caregivers are agreeable to this plan of care and follow-up instructions have been explained in detail. The patient and/or caregivers have received these instruction. The patient/and or caregivers are aware that any significant change in condition or worsening of symptoms should prompt an immediate return to this or the closest emergency department or call 911.
[2024-07-22 22:05] VITALS: RESP 25
[2024-07-22 23:12] VITALS: O2SAT 97
[2024-07-22 23:20] VITALS: BP 144/96; PULSE 94
--- NOTE | 2024-07-23 08:58 | XRAY ---
Indication: Right upper quadrant pain. Gallstones. Multiple contiguous axial images obtained through the abdomen and pelvis using 80 cc Isovue 370 contrast as ordered. Comparison: November 11, 2017 Lung bases remain clear. Heart not enlarged. Again small hiatal hernia with new mild GERD. Noncontrasted stomach and bowel loops appear nonobstructed with normal appendix. Mild distended gallbladder without gallstones or biliary distention. No free fluid/air. Remaining liver, gallbladder, pancreas, spleen, adrenal glands, kidneys, ureters, bladder, uterus, and aorta are unremarkable. No pathologic retroperitoneal lymphadenopathy. Osseous structures intact. No ventral or inguinal hernias. Impression: 1. Incidental hiatal hernia with GERD. 2. Remaining CT abdomen/pelvis with contrast exam is negative.
== END 2024-07-22 23:34 | disposition home or self-care (01) ==
LOC: ED 20:26
DX: R10.13 Epigastric pain (principal); D72.829 Elevated white blood cell count, unspecified; M54.9 Dorsalgia, unspecified; R11.0 Nausea; Z79.899 Other long term (current) drug therapy; K44.9 Diaphragmatic hernia without obstruction or gangrene; K21.9 Gastro-esophageal reflux disease without esophagitis
CPT/HCPCS: 36000; 36415; 74177; 80053; 83690; 84484; 85025; 96374; 96375; 99284; 99285; J1885; J2405

== ENCOUNTER 2024-09-06 14:20 | Emergency (ER) | payer BC ==
[2024-09-06 14:42] VITALS: TEMP 97.6
[2024-09-06] MEDS ORDERED: Zofran 4 MG/2 ML VIAL ONE (14:45)
--- NOTE | 2024-09-06 14:45 | ERPHSYRPT ---
- History of Present Illness Historian: patient Exam Limitations: no limitations Patient Subjective Stated Complaint: pt here for pain epigastric area for last 20mins with some nausea, no vomiting Triage Nursing Assessment: pt alert, slightly anxious. skin w/d/p, holding abd at times, resp easy, no cough, moves all ext well, no edema noted Physician History: Patient has some pain in her upper abdomen mainly on the right side. She has known gallbladder disease with gallstones. She has an appointment on September 27 to get her gallbladder removed. She started having some pain earlier today. Her surgeon told her to come into get it evaluated I guess make sure there is not a obstruction going on. Her pain was a 7 at the start but is improving somewhat. It happened after she ate lunch. Nothing really makes his symptoms better or worse. She does not have any fever chills or toxic symptoms she does have some nausea.Pain is described as cramping and aching. Allergies/Adverse Reactions: morphine Adverse Reaction (Intermediate, Verified 07/22/24 20:41) Home Medications: Omeprazole Magnesium [Prilosec Otc] 20 mg PO BID 05/29/15 [History] Aripiprazole [Abilify] 2 mg PO DAILY 02/05/24 [History] Desvenlafaxine [Desvenlafaxine ER] 100 mg PO DAILY 02/05/24 [History] Non-Formulary Drug [Non-Formulary Item] 65 mg PO DAILY 02/05/24 [History] acetaZOLAMIDE [Acetazolamide 250 mg Tablet] 250 mg PO DAILY 02/05/24 [History] diphenhydrAMINE HCL [Benadryl] 25 mg PO BID PRN 02/05/24 [History] Trazodone HCl 150 mg PO DAILY 09/06/24 [History] Hx Tetanus, Diphtheria Vaccination/Date Given: Yes Hx Influenza Vaccination/Date Given: Yes Hx Pneumococcal Vaccination/Date Given: No Immunizations Up to Date: Yes Travel Risk - International Travel Have you traveled outside of the country in past 3 weeks: No - Emerging Infectious Disease Are you exhibiting symptoms associated with any current EIDs: No Symptoms: Abdominal Pain - Review of Systems Constitutional: No Symptoms Eyes: No Symptoms Ears, Nose, & Throat: No Symptoms Respiratory: No Symptoms Cardiac: No Symptoms Genitourinary Symptoms: No Symptoms - Past Medical History Pertinent Past Medical History: Yes Neurological History: No Pertinent History ENT History: No Pertinent History Cardiac History: No Pertinent History Respiratory History: No Pertinent History Endocrine Medical History: No Pertinent History Musculoskeletal History: No Pertinent History GI Medical History: GERD History: No Pertinent History Psycho-Social History: Anxiety, Depression Female Reproductive Disorders: No Pertinent History Other Medical History: H. Pylori, and E. Coli - Past Surgical History Past Surgical History: Yes Neuro Surgical History: No Pertinent History Cardiac: No Pertinent History Respiratory: No Pertinent History Gastrointestinal: No Pertinent History Genitourinary: No Pertinent History Musculoskeletal: No Pertinent History Female Surgical History: No Pertinent History Other Surgical History: sinus surgery 2002-"cleaned it out", abd lipoma removal May 2017, EGD - Female History Hx Last Menstrual Period: jul Hx Now: No - Social History Smoking Status: Never smoker Exposure to second hand smoke: No Drug Use: none - Social Determinants of Health Will the patient participate in the screening: Yes Do you worry about a steady place to live?: No Do you have any problems with any of the following?: No known problems In the past 12 months,have you had to go without utilities?: No Transportation Issues: No Has anyone in your support network made you feel unsafe?: No Have you or anyone in your house had to go without enough: No - Nursing Vital Signs Nursing Vital Signs: Initial Vital Signs Pulse Rate 90 09/06/24 14:32 Respiratory Rate 16 09/06/24 14:32 Blood Pressure 120/83 09/06/24 14:32 O2 Sat by Pulse Oximetry 96 09/06/24 14:32 Pain Scale Pain Intensity 4 - Physical Exam General Appearance: no apparent distress Eye Exam: PERRL/EOMI Respiratory Exam: normal breath sounds, lungs clear, No chest tenderness Cardiovascular Exam: regular rate/rhythm, normal heart sounds Gastrointestinal/Abdomen Exam: soft, normal bowel sounds, tenderness (Right upper quadrant primarily), No distention, No mass, No guarding, No rebound Extremity Exam: normal inspection, normal range of motion Neurologic Exam: alert, oriented x 3, cooperative Skin Exam: normal color, warm, dry SpO2: 97 - Course EKG Interpreted by Me: Sinus Rhythm, NORMAL AXIS, NORMAL QRS, NORMAL ST-T Ordered Tests: Active Orders 24 hr Category Date Time Status Ultrasound Gallbladder [GALLBLADDER] [US] Stat Exams 09/06/24 14:37 Completed CBC W DIFF Stat Lab 09/06/24 14:58 Completed CMP Stat Lab 09/06/24 14:58 Completed LIPASE Stat Lab 09/06/24 14:58 Completed Medication Summary Discontinued Medications Generic Name Dose Route Start Last Admin Trade Name Jovan PRN Reason Stop Dose Admin Hydromorphone HCl 1 mg 09/06/24 14:38 09/06/24 14:47 Hydromorphone 1 Mg/1ml Inj IV 09/06/24 14:39 1 mg STAT ONE Administration Hydromorphone HCl Confirm 09/06/24 14:46 Hydromorphone 1 Mg/1ml Inj Administered 09/06/24 14:47 Dose 1 mg .ROUTE .STK-MED ONE Ondansetron HCl 4 mg 09/06/24 14:38 09/06/24 14:48 Ondansetron Hcl 4 Mg/2 Ml Vial IV 09/06/24 14:39 4 mg STAT ONE Administration Ondansetron HCl Confirm 09/06/24 14:45 Ondansetron Hcl 4 Mg/2 Ml Vial Administered 09/06/24 14:46 Dose 4 mg .ROUTE .STK-MED ONE Lab/Rad Data: Laboratory Result Diagrams 09/06/24 14:58 09/06/24 14:58 Laboratory Results 09/06/24 09/06/24 Range/Units 14:58 14:58 WBC 9.5 (3.98-10.04) x10^3/uL RBC 4.48 (3.93-5.22) x10^6/uL Hgb 12.8 (11.2-15.7) g/dL Hct 39.3 (34.1-44.9) % MCV 87.7 (79.4-94.8) fL MCH 28.6 (25.6-32.2) pg MCHC 32.6 (32.2-35.5) g/dL RDW 12.6 (11.7-14.4) % Plt Count 304 (182-369) x10^3/uL MPV 9.8 (9.4-12.3) fL Gran % 51.1 (34.0-71.1) % Immature Gran % (Auto) 0.2 (0.001-0.429) % Nucleat RBC Rel Count 0.0 (0.00-0.2) % Eos # (Auto) 0.18 (0.04-0.36) x10^3/uL Immature Gran # (Auto) 0.02 (0.001-0.031) x10^3u/L Absolute Lymphs (auto) 3.67 (1.18-3.74) x10^3/uL Absolute Monos (auto) 0.69 (0.24-0.86) x10^3/uL Absolute Nucleated RBC 0.00 (0.00-0.012) x10^3u/L Lymphocytes % 38.7 (19.3-51.7) % Monocytes % 7.3 (4.7-12.5) % Eosinophils % 1.9 (0.7-5.8) % Basophils % 0.8 (0.1-1.2) % Absolute Granulocytes 4.85 (1.56-6.13) x10^3/uL Basophils # 0.08 (0.01-0.08) x10^3/uL Sodium 138 (135-145) mmol/L Potassium 4.1 (3.5-5.1) mmol/L Chloride 112 H (98-107) mmol/L Carbon Dioxide 18 L (22-30) mmol/L Anion Gap 12.3 (5-15) MEQ/L BUN 11 (7-17) mg/dL Creatinine 0.87 (0.52-1.04) mg/dL Estimated GFR 89.6 ML/MIN Glucose 95 (74-106) mg/dL Calcium 9.2 (8.4-10.2) mg/dL Total Bilirubin 0.40 (0.2-1.3) mg/dL AST 46 H (14-36) U/L ALT 18 (0-35) U/L Alkaline Phosphatase 63 (38-126) U/L Serum Total Protein 7.2 (6.3-8.2) g/dL Albumin 4.0 (3.5-5.0) g/dL Lipase 202 (23-300) U/L - Progress Progress Note: On the differential is cholelithiasis, cholecystitis, coronary vascular event, dyspepsia, gastroenteritis I think the patient is just having a gallbladder attack. She does not have any evidence on her ultrasound of thickening or cholecystitis. Her lab work all looks good. I am going to discharge her to home in stable condition.I am going to give her some Rawson and Zofran. 09/06/24 14:44 09/06/24 16:55 09/06/24 16:56 Medical Desision Making - Risk of complications Low Risk: Low risk of morbidity from additional dx testing or treatment - Departure Departure Disposition: Home Clinical Impression: Biliary colic Condition: Stable Critical Care Time: No Referrals: GABRIELLE LOVE, JOB ANALYSIS MANAGER [Primary Care Provider] - Follow up/PCP as directed
[2024-09-06] MEDS ORDERED: Hydromorphone 1 mg/ml Injection ONE (14:46)
[2024-09-06] MEDS: Hydromorphone 1 mg/ml Injection IV ONE (14:47)
[2024-09-06] MEDS: Zofran 4 MG/2 ML VIAL IV ONE (14:48)
[2024-09-06 15:06] LABS: Absolute Neutrophil Ct (ANC) 4.85 x10^3/uL (1.56-6.13); BASOPHIL % 0.8 % (0.1-1.2); Basophil (Absolute #) 0.08 x10^3/uL (0.01-0.08); Eosinophil % 1.9 % (0.7-5.8); Eosinophil (Absolute #) 0.18 x10^3/uL (0.04-0.36); Hematocrit 39.3 % (34.1-44.9); Hemoglobin 12.8 g/dL (11.2-15.7); IMMATURE GRAN # 0.02 x10^3u/L (0.001-0.031); IMMATURE GRAN % 0.2 % (0.001-0.429); Lymphocyte (Absolute #) 3.67 x10^3/uL (1.18-3.74); Lymphocytes % 38.7 % (19.3-51.7); Mean Cell Volume 87.7 fL (79.4-94.8); Mean Corpuscular Hemoglobin 28.6 pg (25.6-32.2); Mean Corpuscular Hgb Concent. 32.6 g/dL (32.2-35.5); Mean Platelet Volume 9.8 fL (9.4-12.3); Monocyte (Absolute #) 0.69 x10^3/uL (0.24-0.86); Monocytes % 7.3 % (4.7-12.5); Neutrophil % 51.1 % (34.0-71.1); Platelet Count 304 x10^3/uL (182-369); Red Blood Count 4.48 x10^6/uL (3.93-5.22); Red Cell Distribution Width 12.6 % (11.7-14.4); White Blood Count 9.5 x10^3/uL (3.98-10.04)
[2024-09-06 15:18] LABS: ANION GAP 12.3 MEQ/L (5-15); BILIRUBIN,TOTAL 0.4 mg/dL (0.2-1.3); Calcium 9.2 mg/dL (8.4-10.2); Creatinine 1 0.87 mg/dL (0.52-1.04); EST GLOMERULAR FILTRATION RATE 89.6 ML/MIN; Potassium 4.1 mmol/L (3.5-5.1); Total Protein 7.2 g/dL (6.3-8.2)
[2024-09-06 15:58] VITALS: PULSE 90; RESP 16
--- NOTE | 2024-09-06 16:35 | XRAY ---
Indication: Right upper quadrant pain. Two-dimensional gallbladder sonogram performed. Comparison: July 23, 2024 Pancreas again not seen due to overlying bowel gas. Visualized gallbladder appears normally distended again with tiny gallstones/gravel in the dependent portion. No abnormal gallbladder wall thickening or pericholecystic fluid. Common bile duct measures 6 mm. No intrahepatic biliary distention. Remaining visualized liver and right kidney again sonographically unremarkable. Right kidney measures 10.8 x 4.5 x 4.6 cm. Impression: 1. Again nonvisualization pancreas. 2. Again tiny gallstones/gravel. Negative for acute cholecystitis or biliary distention.
[2024-09-06 16:57] VITALS: O2SAT 97
[2024-09-06 17:08] VITALS: BP 112/73
== END 2024-09-06 17:14 | disposition home or self-care (01) ==
LOC: ED 14:20
DX: K80.50 Calculus of bile duct without cholangitis or cholecystitis without obstruction (principal); R10.9 Unspecified abdominal pain
CPT/HCPCS: 36415; 76705; 80053; 83690; 85025; 96374; 96375; 99284; J1171; J2405

== ENCOUNTER 2024-09-27 10:42 | Day surgery (SDC) | payer BC ==
[2024-09-27] MEDS ORDERED: Lactated Ringers 1,000 ML IV ONE ×2 (10:48→13:49)
[2024-09-27] MEDS ORDERED: CEFOXITIN 2 GM/100 ML NACL IVPB 2 GM/100 ML IVPB IV ONE (10:48)
[2024-09-27 10:59] VITALS: RESP 18
[2024-09-27] MEDS: Lactated Ringers 1,000 ML IV SCH (11:19)
[2024-09-27] MEDS: CEFOXITIN 2 GM/100 ML NACL IVPB 2 GM/100 ML IVPB IV ONE (11:30)
[2024-09-27] MEDS: NACL IV STA (11:47)
[2024-09-27] MEDS: [UNRECOGNIZED DRUG - OTHER] IV STA (11:47)
[2024-09-27] MEDS ORDERED: Sensorcaine 0.25% 10 ML ONE (11:49)
[2024-09-27] MEDS ORDERED: Sodium Chloride 0.9% 1000 ML 1,000 ML ONE (11:49)
[2024-09-27 11:56] LABS: HCG URINE TEST NEGATIVE (NEGATIVE)
[2024-09-27] MEDS ORDERED: propofoL IV ONE (11:58)
[2024-09-27] MEDS ORDERED: ROCURONIUM BROMIDE IV ONE ×2 (12:13→13:07)
[2024-09-27] MEDS ORDERED: Zofran 4 MG/2 ML VIAL ONE (12:13)
[2024-09-27] MEDS ORDERED: dexAMETHasone sodium phosphate ONE (12:13)
[2024-09-27] MEDS ORDERED: SUBLIMAZE 100 MCG/2 ML ONE ×2 (12:41→14:08)
[2024-09-27] MEDS ORDERED: Hydromorphone 1 mg/ml Injection ONE (14:50)
[2024-09-27 15:39] VITALS: TEMP 97.5
[2024-09-27 15:52] VITALS: BP 151/93; PULSE 97
[2024-09-27 15:57] VITALS: O2SAT 98
--- NOTE | 2024-09-30 12:01 | OP ---
SURGERY DATE/TIME: 09/27/2024 [id number] PREOPERATIVE DIAGNOSIS: Chronic cholelithiasis with cholecystitis and gallstone pancreatitis. POSTOPERATIVE DIAGNOSIS: Chronic cholelithiasis with cholecystitis and gallstone pancreatitis. PROCEDURE: Laparoscopic cholecystectomy. SURGEON: Kourtney Car MD ANESTHESIA: General. ESTIMATED BLOOD LOSS: Minimal, less than 10 mL. COMPLICATIONS: None. SPECIMEN: Gallbladder. INDICATIONS: This is a 34-year-old female who presents to my office with symptoms consistent with chronic cholecystitis. She has had imaging which shows gallstones, and then she also reports that she has had elevation in her pancreatic numbers during ER visits due to her gallbladder attacks. She did visit the ER over the past couple of weeks due to an attack with a very mild elevation. That attack has resolved. She is not having any acute symptoms. She never had jaundice and she is doing well currently, but she does continue to have on and off symptomatic pain. I have discussed with her in detail the procedure details, the risks, the benefits and the alternatives regarding laparoscopic, possible open, cholecystectomy. She would like to proceed. She understands these. All her questions have been answered to her satisfaction. I have also completed her H and P and consent preoperatively with her. DESCRIPTION OF PROCEDURE AND FINDINGS: She was able to be brought back to the operative suite. Anesthesia was then induced. She had an OG tube placed and her stomach was decompressed. We then did a complete time-out. I then made an incision in the left upper quadrant. A Veress needle was used to access the abdominal cavity. We had a good initial water drop test. The abdomen was evenly insufflated up to 15. We then placed an optical trocar at this same site under direct visualization. No injuries were identified. I then made a small incision at the inferior aspect of her umbilical and 2 small incisions in her right upper quadrant. These incisions were each used for 5 ports and all were placed under direct visualization. The gallbladder was visualized. Much of the abdominal contents were covered by a thick omentum. This omentum did also come up and wrap the majority of the gallbladder except for the apex. It appeared to be wrapped and scarred due to chronic cholecystitis. I very carefully transected at the level of the gallbladder to remove the omentum. We were then able to better grasp and retract the gallbladder. We then continued our dissection and she did again continue to have some scarring, all consistent with cholecystitis. As we made our way to identify to the cystic duct and cystic arteries, I very clearly identified the cystic duct. At this point, we did not ligate it. We continued our dissection to very clearly identify the cystic artery. Once this was done, I then cleared the liver plate approximately a third [address] way up the gallbladder to expose the liver and to ensure that there were only 2 structures entering the gallbladder, the cystic duct and the cystic artery. Once we had a very defined critical view, I then clipped the cystic duct, clipped the cystic artery, ligated each structure and then carefully removed the gallbladder off the liver bed with the Bovie cautery. I then attempted to remove the gallbladder out of the left upper quadrant. It was grasped and gently retracted. The gallbladder wall itself was extremely thin and tears easily. So at this point, we then re-grasped the gallbladder. I upsized my port to an 11 port. Through this, I placed a laparoscopic 10 port bag. The gallbladder was placed into the bad and then removed through this same site. She had multiple small stones within the gallbladder and thick bile. This was sent to pathology. We then irrigated and inspected the surgical site. There is no bile. There is no bleeding. I do not see any stones. I am very happy with the resection site. Everything looks good. At this point, I then closed the left upper quadrant port with 0 Vicryl laparoscopic suture with the suture passer. Then we did a final inspection. There is no bleeding in the left upper quadrant. No bleeding at the surgical site. No bile, no stones, nothing of concern. She does have some very minimal nonspecific scarring of her liver that is noted that is, again, very minimal. She may have very early fatty liver disease, just on gross inspection but there were no major concerns of the readily visible other structures at this point. Then we desufflated the abdomen through the right upper quadrant. We did inspect our periumbilical trocar and made sure this had no bleeding and then we proceeded to desufflate and then remove the right-sided trocars after desufflation. No bleeding at this sites. Then we irrigated, closed with buried 4-0 Monocryl, Steri-Strips and sterile dressing. The patient tolerated the procedure very well. There are no immediately complications. I discussed her results with her family and then with her in the postoperative unit. I also discussing homegoing instructions. She is also being sent a prescription for [place] and she understands all of her homegoing instructions and her follow up with me. She also has a number to call should she have any concerns or issues.
== END 2024-09-27 15:58 | disposition home or self-care (01) ==
LOC: SDC 10:42
PROVIDERS: ATTEND Surgery
DX: K80.10 Calculus of gallbladder with chronic cholecystitis without obstruction (principal); K85.10 Biliary acute pancreatitis without necrosis or infection
CPT/HCPCS: 81025; J0694; J1100; J1171; J2405; J2704; J3010; L0625